=== PATIENT | male | born 1970 | race Caucasian/White ===

== ENCOUNTER 2020-01-31 11:25 | Outpatient (REF) | payer MEDICAID, SELFPAY | END 2020-01-31 11:26 | disposition home or self-care (01) | LOC: HO.LAB 11:25 | PROVIDERS: Visit Provider Internal Medicine | DX: Z20.828 Contact with and (suspected) exposure to other viral communicable diseases (principal) | CPT/HCPCS: 87635 ==

== ENCOUNTER 2020-01-31 23:13 | Emergency (ER) | payer MEDICAID, SELFPAY ==
--- NOTE | 2020-01-31 23:27 | XR_ITS ---
EXAMINATION: CHEST 1 VIEW CLINICAL INFORMATION: Shortness of breath. COMPARISON: None. TECHNIQUE: An AP view of the chest is provided. FINDINGS: The cardiac silhouette is not enlarged. The mediastinal and hilar contours are unremarkable. There are neither pleural effusions nor pneumothoraces. There are no consolidations. The osseous structures are unremarkable. XR/XR chest 1V IMPRESSION: No evidence for acute disease.
[2020-01-31 23:35] VITALS: BP 143/83; PULSE 79; RESP 20; TEMP 37.3; O2SAT 97; BMI 33.2
--- NOTE | 2020-01-31 23:55 | ED_ITS ---
HPI - URI/Sore Throat General Chief Complaint: Upper Respiratory Symptoms Stated Complaint: SOB Time Seen by Provider: 01/31/20 23:27 History of Present Illness HPI Narrative: 49M presents with shortness of breath after having used both cocaine and heroin prior to arrival. He denies any associated fevers, chills, sore throat, recent travel, chest pain, GI symptoms, or symptoms. Related Data Allergies Allergy/AdvReac Type Severity Reaction Status Date / Time No Known Allergies Allergy Unverified 12/27/19 16:39 [No Known Allergies*] Review of Systems Review of Systems: Pertinent positives and negatives as stated in the HPI and 10pt ROS is otherwise negative. [facility] Past Medical History Medical History Hepatitis C Social History Social History Advance Directives: No Physical Exam Vital Signs: Vital Signs: Vital Signs Temp Pulse Resp BP Pulse Ox 01/31/20 23:35 99.1 F 79 20 143/83 H 97 Body Mass Index 33.2 Constitutional: No Weight loss, No Fever, No Chills, No Night Sweats, No Fatigue, No Malaise ENT/Mouth: No Hearing loss, No Ear Pain, No Nasal Congestion, No Sinus Pain, No Hoarseness, No sore throat, No Rhinorrhea, No Swallowing Difficulty Eyes: No Eye Pain, No Swelling, No Redness, No Foreign Body, No Discharge, No Vision Changes Cardiovascular: No Chest Pain, No SOB, No Dyspnea on Exertion, No Orthopnea, No Edema, No Palpitations Respiratory: No Cough, No Sputum, No Wheezing, No Smoke Exposure, No Dyspnea Gastrointestinal: No Nausea, No Vomiting, No Diarrhea, No Constipation, No abdominal Pain, No Hematochezia, No Melena Genitourinary: no irregular bleeding, No Dysuria, No Urinary Frequency, No Hematuria, No Urinary Incontinence, No Urgency, No Flank Pain, No Urinary Flow Changes, No Hesitancy Musculoskeletal: No joint pain, No Myalgias, No Joint Swelling Skin: No Skin Lesions, No rash Neuro: No Weakness, No Numbness, No Paresthesias, No Loss of Consciousness, No Dizziness, No Headache Psych: No Anxiety/Panic, No Depression, No SI/HI/AH/VH, No Social Issues, Heme/Lymph: No Bruising, No Bleeding,No Lymphadenopathy Endocrine: No Polyuria, No Polydipsia, No Temperature Intolerance Course Course Course Narrative: 49M with history and clinical presentation suggestive of possible drug side effects, viral syndrome, doubt cardiac or pneumonia etiology. Labs, CXR, EKG ordered. Informed by nursing that patient eloped. Discharge Plan Discharge Clinical Impression: Upper respiratory infection Patient Disposition: Elopement Discharge Date/Time: 02/01/20 00:46 Print Language: Slovak
--- NOTE | 2020-02-01 00:42 | PC.NURSE ---
PT JUST WALKED OUT AND STATED HE IS FEELING BETTER AFTER HE WAS ASKED TO GIVE A URINE COLLECTION. PT WALKED OUT WITH A STEADY GAIT. SKIN PINK WARM AND DRY. PT MOM CALLED AND PT HAS BEEN TALKING WITH HIS MOM. MOM STATES SHE KNOWS WHY HE JUST LEFT. PT DID HERION AND COCAINE 2.5 HOURS BEFORE ARRIVAL. PT IS AOX3 AND DID NOT WANT TO WAIT TO TALK TO THE DOCTOR.
== END 2020-02-01 00:46 | disposition left against medical advice (07) ==
LOC: HO.ED 23:53
PROVIDERS: Emergency Provider Student in an Organized Health Care Education/Training Program
DX: R06.02 Shortness of breath (principal)
CPT/HCPCS: 71045; 99282; 99283